=== PATIENT | female | born 1945 | race Caucasian/White ===

== ENCOUNTER 2018-11-21 09:13 | Outpatient (RCR) | payer MEDICARE, MEDICAID ==
--- NOTE | 2018-11-19 11:02 | NUR ---
11/18/18 0900 Patient in today for nursing assessment. Patients vital signs are stable. Pt is alert and oriented x 4. Pt's skin is warm pink and dry. Pt is in a pleasant mood. Pt stated her pmh with alcholism. Pt states she is sober but that she is struggling. Pt will meet with the doctor on 11/22/18 for psych eval. Pt denies any suicidal thoughts. Will follow up with pt.
[~2018-11-21 09:13] MED LIST: BUSPIRONE10 MG PO; CITALOPRAM20 MG PO; DIPHENOXYLATE/A1 TA1 PO; FAMOTIDINE20 M3 PO; GABAPENTIN100 MG PO; LISINOPRIL20 MG PO; LOPERAMIDE HCL2 M1 PO; METOPROLOL SUCC50 MG PO; NALTREXONE50 MG PO; NORVASC PO; TRAZODONE300 MG PO
--- NOTE | 2018-11-21 12:59 | NUR ---
11/21/18 0979 Patient in office to sign a few admission forms. Pt and RN discussed allergy vs cold symptoms. Pt presents with a productive cough. Pt states that she used her inhaler and it helped. Pt states no SOB, no chest pain. RN looked up the allergy index on [employer] web page and showed pt the allergie index. Pt states she is drinking her fluids and resting when needed. Will continue to monitor pt. Pt advised to call PCP if condition worsens.
== END 2018-11-21 23:59 | disposition still patient (30) ==
LOC: PATHWAYS 09:13
PROVIDERS: ATTEND Specialist
DX: F41.1 Generalized anxiety disorder (principal); F43.21 Adjustment disorder with depressed mood; F33.2 Major depressive disorder, recurrent severe without psychotic features